=== PATIENT | female | born 1970 | race Caucasian/White ===

== ENCOUNTER 2020-12-25 21:23 | Emergency (ER) | payer BC ==
[~2020-12-25] VITALS: Ht 154.9 cm; Wt 84.8 kg
[2020-12-25] MEDS ORDERED: HUMIRA PEN40 MG/0.4 SUB-Q (21:37)
== END 2020-12-25 23:27 | disposition home or self-care (01) ==
LOC: ED 21:23
DX: T78.40XA Allergy, unspecified, initial encounter (principal); Z79.899 Other long term (current) drug therapy
CPT/HCPCS: 96374; 96375; 99283-25; J2930; J7030; Q0163